=== PATIENT | male | born 1965 | race Caucasian/White ===

== ENCOUNTER → 2023-06-09 | Outpatient (CLI) | payer BC ==
[2023-06-09 12:32] LABS: Basophils # (A) 0.13 X 10*3/uL (0.00-0.10); Basophils % (A) 1.7 %; Eosinophils # (A) 0.35 X 10*3/uL (0.04-0.35); Eosinophils % (A) 4.5 %; HCT 52.7 % (39.6-50.0); HGB 16.8 g/dL (13.0-17.0); Lymphocytes # (A) 1.97 X 10*3/uL (0.90-5.00); Lymphocytes % (A) 25.3 %; MCH 27.1 pg (27.0-32.0); MCHC 31.9 g/dL (32.0-37.0); MCV 85.1 FL (80.0-97.0); Mean Platelet Volume 10.1 FL (9.5-12.2); Monocytes # (A) 0.57 X 10*3/uL (0.20-1.00); Monocytes % (A) 7.3 %; NRBC Per 100 WBC 0 X 10*3/uL (0.00-0.01); Neutrophils # (A) 4.75 X 10*3/uL (1.80-7.70); Neutrophils % (A) 60.8 %; Platelet Count 337 X 10*3/uL (140-440); RBC 6.19 X 10*6/uL (4.40-5.60); RDW 13.2 % (11.5-14.5)
[2023-06-09 12:51] LABS: ALT 37 U/L (10-49); AST 34 U/L (14-35); Albumin 4.3 g/dL (3.8-4.9); Albumin/Globulin Ratio 1.72 Ratio (1.60-3.17); Alkaline Phosphatase 77 U/L (41-126); BUN/Creat Ratio 20.67 Ratio (12.00-20.00); Blood Urea Nitrogen 18.6 mg/dL (9.0-27.0); Calcium 9.9 mg/dL (8.7-10.3); Chloride 101 mmol/L (96-109); Chol/HDL Ratio 4.57 Ratio; Globulin 2.5 g/dL (1.6-3.3); Glucose 105 mg/dL (70-110); LDL Cholesterol,Calculated 158.6 mg/dL (0.0-131.0); Potassium 4.7 mmol/L (3.5-5.5); Sodium 141 mmol/L (135-145); Total Bilirubin 0.4 mg/dL (0.3-1.2); Total Protein 6.8 g/dL (6.2-8.2)
== END | disposition home or self-care (01) ==
LOC: LABWHC1 08:45
PROVIDERS: ATTEND Family Medicine
DX: R06.02 Shortness of breath (principal)
CPT/HCPCS: 36415; 80053; 80061; 83036; 84443; 85025

== ENCOUNTER → 2023-06-26 | Outpatient (CLI) | payer BC ==
--- NOTE | 2023-06-26 13:22 | NM ---
EXAMINATION TYPE: NM stress cardiolite complete DATE OF EXAM: 06/26/2023 COMPARISON: NONE HISTORY: 58-year-old male with shortness of breath, R06.02. TECHNIQUE: After the intravenous administration of 9.7 mCi Tc 99m Sestamibi - Cardiolite resting SPE CT images acquired 45 minutes post injection. The patient received 0.4mg Lexiscan, 25.9 mCi Tc 99m Se stamibi - Stress images obtained 1105 minutes post injection FINDINGS: Review of stress and rest SPECT images demonstrates a large fixed perfusion defect along the septal a nd anteroseptal wall. Also fixed defect along the apical inferolateral wall.. However, the septal and anteroseptal defect appears to enlarge and stress images. Gated analysis shows limited augmentation of the septal wall and an estimated left ventricular ejecti on fraction of 55 %. TID calculated at 0.77, within normal limits. IMPRESSION: 1. Unable to exclude old infarcts along the septal and anteroseptal wall as well as the apical infero lateral wall. 2. In addition, there is some reversibility suggesting fuad-infarct ischemia along the septal/anteros eptal wall. Further clinical correlation recommended. 3. Borderline LVEF of 55%.
--- NOTE | 2023-06-27 11:51 | CA ---
Lexiscan Nuclear Stress Test Report Name: Reji Guevara Exam Date: 06/26/2023 10:15 Exam Location: [facility] Ht (in): 72 Wt (lb): 290 BSA: 2.49 Ordering Phys: Demetrius Loaiza MD Referring Phys: Demetrius Loaiza MD Technologist: LOUIE Age: 58 Gender: M : 1965 Procedure CPT: Indications: R06.02 SHORTNESS OF BREATH ICD-10 Codes: Patient History: MARV, DIABETIC, ELEVATED CHOLESTEROL LEVELS, PRIOR SMOKER Medications: ATORVASTATIN, METFORMIN Meds past 24 hrs: Pretest Chest Pain: STRESS TEST Lexiscan Protocol Exercise Duration (min:sec): 02:[address] Depressions (mm): Angina Score: Purvis Score: Resting HR (bpm): 93 Peak HR (bpm): 113 Resting BP (mmHg): 138 / 85 Peak BP (mmHg): 138 / 85 MPHR: 161 Target HR: 137 % MPHR: 70 METS: 1.0 Total Dose: Peak Dose: Atropine: Double Product: 17830 BP Response: Stress Termination: INFUSION COMPLETE Stress Symptoms: NO SYMPTOMS Stress Summary: ECG ANALYSIS Resting ECG: Sinus rhythm, normal axis, heart rate 91 bpm Stress ECG: No significant ST-T wave changes diagnostic for ischemia by ST segment analysis. There were no arrhythmias of sustained ectopic beats. CONCLUSIONS Normal clinical response to Lexiscan infusion Nonischemic ECG response to Lexiscan infusion Overall normal ECG portion of the nuclear stress test Please refer to the nuclear portion of the Lexiscan nuclear stress test for complete interpretation. Dr Yao Ojeda (Electronically Signed) Final Date: 27 June 2023 11:50
== END | disposition home or self-care (01) ==
LOC: RADNMMAIN 08:27
PROVIDERS: ATTEND Family Medicine
DX: R06.02 Shortness of breath (principal); I51.7 Cardiomegaly
CPT/HCPCS: 94726; 94729; 94060; 93017; 78452; A9500

== ENCOUNTER 2023-07-26 10:25 | Day surgery (SDC) | payer BC ==
[~2023-07-26 10:25] MED LIST: ALPRAZolam 0.25 MG TAB PO PRN; ALPRAZolam 0.5 MG TAB PO PRN; ASPIRIN 325 MG TAB PO STA; ATORVASTATIN 80 MG TAB PO STA; HEPARIN SODIUM,PORCINE (1 ML) 2,500 UNIT in SODIUM CHLORIDE 0.9% 250 ML IRRIGATION PRN; HEPARIN SODIUM,PORCINE 10,000 UNIT in SODIUM CHLORIDE 0.9% 1,000 ML IRRIGATION PRN; NITROGLYCERIN SL TABS 0.4 MG TAB SUBLINGUAL PRN; SODIUM CHLORIDE 0.9% 1,000 ML in EMPTY BAG 1 BAG IV SCH
[2023-07-26 10:48] LABS: Glucose,Whole Blood 109 mg/dL (70-110)
[2023-07-26] MEDS ORDERED: SODIUM CHLORIDE 0.9% 1,000 ML IV ONE (10:54)
[2023-07-26 10:56] LABS: Basophils # (A) 0.1 k/uL (0-0.2); Basophils % (A) 1 %; Eosinophils # (A) 0.4 k/uL (0-0.7); Eosinophils % (A) 3 %; HCT 52.6 % (39.0-53.0); HGB 17.6 gm/dL (13.0-17.5); Lymphocytes # (A) 2.3 k/uL (1.0-4.8); Lymphocytes % (A) 22 %; MCH 28.1 pg (25.0-35.0); MCHC 33.5 g/dL (31.0-37.0); MCV 83.9 fL (80.0-100.0); Monocytes # (A) 0.5 k/uL (0-1.0); Monocytes % (A) 5 %; Neutrophils # (A) 7.1 k/uL (1.3-7.7); Neutrophils % (A) 67 %; Platelet Count 288 k/uL (150-450); RBC 6.27 m/uL (4.30-5.90); WBC 10.6 k/uL (3.8-10.6)
[2023-07-26 11:05] LABS: African American GFR (CKD) >90 (>60 ml/min/1.73 sqM); Anion Gap 11 mmol/L; Blood Urea Nitrogen 26 mg/dL (9-20); Calcium 9.6 mg/dL (8.4-10.2); Carbon Dioxide 28 mmol/L (22-30); Chloride 104 mmol/L (98-107); Glucose 120 mg/dL (74-99); Non-African American GFR(CKD) >90 (>60 ml/min/1.73 sqM); Potassium 4.1 mmol/L (3.5-5.1); Sodium 143 mmol/L (137-145)
[2023-07-26 11:16] VITALS: RESP 18; TEMP 98.5
[2023-07-26] MEDS ORDERED: fentaNYL (PF) 50 MCG/ML 2 ML AMP ONE (14:34)
[2023-07-26] MEDS ORDERED: HEPARIN SODIUM 1,000 UN/ML (10ML VL) ONE (14:34)
[2023-07-26] MEDS ORDERED: LIDOCAINE 1% INJ 10MG/ML (20 ML MDV) ONE (14:34)
[2023-07-26] MEDS ORDERED: VERAPAMIL 2.5 MG/ML 2 ML AMP ONE (14:34)
[2023-07-26] MEDS: MIDAZOLAM 2 MG/2 ML VIAL IVP ONE ×2 (15:00→15:05)
[2023-07-26] MEDS: fentaNYL (PF) 50 MCG/1 ML VIAL IVP ONE ×2 (15:00→15:05)
[2023-07-26] MEDS ORDERED: LIDOCAINE 1% INJ 10MG/ML (20 ML MDV) SQ ONE (15:01)
[2023-07-26] MEDS ORDERED: VERAPAMIL SYRINGE (5 MG/10 ML) INTRAARTER ONE (15:03)
[2023-07-26] MEDS ORDERED: HEPARIN SODIUM 1,000 UN/ML (10ML VL) IV ONE (15:05)
[2023-07-26] MEDS ORDERED: IOPAMIDOL-370 100ML BTL INJ ONE (15:13)
--- NOTE | 2023-07-26 15:35 | P.CARDCATH ---
Description of Procedure: PROCEDURES PERFORMED: Left heart catheterization, bilateral coronary angiography, ultrasound guided arterial access INDICATION: Abnormal stress test CONSENT:I have discussed the risks, benefits and alternative therapies for the above-mentioned procedure and for both sedation/analgesia as well as necessary blood product administration, if indicated, as they pertain to this patient. The patient has indicated understanding and acceptance of the risks and procedures discussed. PROCEDURE: After the risks, benefits and alternatives of the above mentioned procedure explained in detail with the patient, informed consent was obtained. Patient was taken to the catheterization lab and prepped and draped in usual fashion. Ultrasound guidance was used to assess for arterial access. 1% lidocaine was used to anesthetize the right radial artery. A 6-[place] sheath was placed in the right radial artery using modified Seldinger technique and ultrasound guidance. Left coronary angiography was performed with a 5-[place] JL 3.5 catheter and right coronary angiography was performed with a 5-[place] FR5 catheter in various views. A 5-[place] FR5 catheter was inserted into the left ventricle and pressure measurements were obtained. The right radial sheath was removed and a TR band was placed with hemostasis achieved. The patient to lerated the procedure well. Patient was transported back to the post catheterization holding area in stable condition. Conscious Sedation: Patient was monitored under the direct supervision of myself for conscious sedation using Versed and fentanyl for a total duration of 12 minutes HEMODYNAMICS: Aorta: 138/71 LV: 134/80, LVEDP 16 SELECTIVE CORONARY ARTERIOGRAPHY: LEFT MAIN: The left main is a large caliber vessel which bifurcates into the LAD and circumflex. There is no significant stenosis. LEFT ANTERIOR DESCENDING CORONARY ARTERY: LAD is a large caliber vessel which wraps around to the apex. There are mild luminal irregularities of the LAD with 10-20% mid LAD stenosis. LEFT CIRCUMFLEX CORONARY ARTERY: Left circumflex is a moderate caliber vessel without significant stenosis. RIGHT CORONARY ARTERY: The right coronary artery is a large caliber vessel which gives off a PDA and PLV branch and is the dominant vessel. There is no significant stenosis. FINAL IMPRESSION: 1. Relatively normal coronary arteries other than 10-20% mid LAD stenosis 2. High normal left sided filling pressures PLAN: 1. Aggressive risk factor modification per most recent ACC/AHA guidelines. 2. Follow-up in the office in 1-2 weeks.
[2023-07-26] MEDS ORDERED: ACETAMINOPHEN TAB 500 MG TAB PO ONE (16:06)
[2023-07-26 16:37] VITALS: PULSE 84
[2023-07-26 17:03] VITALS: BP 119/73
== END 2023-07-26 18:17 | disposition home or self-care (01) ==
LOC: CATHCVL 10:25
PROVIDERS: ATTEND Internal Medicine
DX: I25.10 Atherosclerotic heart disease of native coronary artery without angina pectoris (principal); I10 Essential (primary) hypertension; E11.9 Type 2 diabetes mellitus without complications; Z87.891 Personal history of nicotine dependence; E78.5 Hyperlipidemia, unspecified; Z79.82 Long term (current) use of aspirin
CPT/HCPCS: 93458; 76937; 80048; 85025; C1894; J2250; J2001; J1644; Q9967; J3010

== ENCOUNTER → 2024-02-01 | Outpatient (CLI) | payer BC ==
[2024-02-01 21:00] LABS: BUN/Creat Ratio 16.78 Ratio (12.00-20.00); Blood Urea Nitrogen 15.1 mg/dL (9.0-27.0); Calcium 9.1 mg/dL (8.7-10.3); Carbon Dioxide 27.2 mmol/L (21.6-31.8); Chloride 100 mmol/L (96-109); Glucose 88 mg/dL (70-110); Potassium 4.5 mmol/L (3.5-5.5); Sodium 141 mmol/L (135-145)
[2024-02-01 21:25] LABS: NT-Pro-B-Type Natriuretic Pept 73 pg/mL (0-125)
== END | disposition home or self-care (01) ==
LOC: LABWHC1 12:17
PROVIDERS: ATTEND Internal Medicine
DX: I50.22 Chronic systolic (congestive) heart failure (principal)
CPT/HCPCS: 36415; 80048; 83880

== ENCOUNTER → 2024-05-30 | Outpatient (CLI) | payer BC ==
--- NOTE | 2024-05-30 11:00 | FL ---
EXAMINATION TYPE: FL sniff test without CXR DATE OF EXAM: 05/30/2024 8:27 AM COMPARISON: Chest radiograph from CLINICAL INDICATION:Male, 59 years old with history of J98.6 DISORDERS OF DIAPHRAGM; TECHNIQUE: With the patient standing, fluoroscopy of the right and left hemidiaphragm was observed du ring normal resting respiration as well as deep inspiration, deep expiration, and "sniffing." Fluoroscopic time: 48 seconds Fluoroscopic images: 0 Radiographs taken: 4 DAP: Not reported mGym2 FINDINGS: Endoscopy Support Specialist film demonstrates: no focal consolidation, pneumothorax, or pleural effusions. The cardiomedias tinal silhouette is within normal limits. There is elevation of the left hemidiaphragm. This is stab le and compared to previous chest radiograph. The left diaphragm contracts during inspiration. Both hemidiaphragms move together. Normal excursion is demonstrated of the left hemidiaphragm. The right diaphragm contracts during inspiration. Both hemidiaphragms move together. Reduced excursio n is demonstrated of the right hemidiaphragm. IMPRESSION: Both diaphragms moved, however excursion was more pronounced on the left compared to the right. [facility], , 05/30/2024 10:57 AM
== END | disposition home or self-care (01) ==
LOC: RADFLMAIN 07:45
PROVIDERS: ATTEND Internal Medicine
DX: J98.6 Disorders of diaphragm (principal)
CPT/HCPCS: 76000